=== PATIENT | female | born 1985 | race Caucasian/White ===

== ENCOUNTER 2018-02-20 02:04 | Inpatient (IN) | payer BC ==
[2018-02-20] MEDS ORDERED: Butorphanol Tartrate 1 MG/ML VIAL SLOW IVP PRN (02:20)
[2018-02-20] MEDS ORDERED: Promethazine HCl 25 MG/ML VIAL IM PRN ×2 (02:20→03:59)
[2018-02-20] MEDS ORDERED: Lactated Ringer's 1,000 ML IV SCH ×2 (02:20→02:21)
[2018-02-20] MEDS ORDERED: Ondansetron PF 4 MG/2 ML Vial IVP PRN ×2 (02:20→03:59)
[2018-02-20] MEDS ORDERED: Lidocaine 1% (PF) 30 ML VIAL ONE (02:30)
[2018-02-20] MEDS ORDERED: NS / Oxytocin 40 units/1000ml 1,000 ML ONE ×2 (02:30→07:04)
[2018-02-20 02:43] LABS: Hemoglobin 13.8 g/dL (12.0-16.0); Mean Corpuscular HGB CONC 35.4 g/dL (32.0-36.0); Mean Corpuscular Hemoglobin 32.4 pg (27.0-31.0); Mean Corpuscular Volume 91.4 fL (78.0-98.0); Mean Platelet Volume 10.1 fL (7.4-10.4); Platelet Count 199 thou/uL (130-400); RBC Distribution Width 12.3 % (11.5-14.5); Red Blood Cell (RBC) Count 4.26 mill/uL (4.20-5.40); White Blood Cell (WBC) Count 11.1 thou/uL (4.8-10.8)
[2018-02-20] MEDS ORDERED: Fentanyl 4 mcg/Bup 0.1% Cadd 100 ML ONE (03:00)
[2018-02-20 03:22] LABS: HBSAg Index 0.17 S/CO (0-0.99); Hep B Surf Ag Non-Reactive S/CO (NonReactive)
[2018-02-20] MEDS ORDERED: diphenhydrAMINE 50 MG/ML VIAL IVP PRN (03:59)
[2018-02-20] MEDS ORDERED: Eucerin (Mineral Oil/Petrolatum,White) 30 gm Jar TOP PRN (03:59)
[2018-02-20] MEDS ORDERED: Acetaminophen 325 MG TAB PO PRN (03:59)
[2018-02-20] MEDS ORDERED: Lactated Ringer's 500 ML IV PRN (03:59)
[2018-02-20] MEDS ORDERED: ePHEDrine/0.9% NaCl/PF SYRINGE 50 mg/10 ml SLOW IVP PRN (03:59)
[2018-02-20] MEDS ORDERED: Naloxone HCl 0.4 mg/ml Vial IVP PRN ×2 (03:59)
[2018-02-20] MEDS ORDERED: Fentanyl 4 mcg/Bupivacaine 0.1% Cassette 100 ML EPIDURAL SCH (04:00)
[2018-02-20] MEDS ORDERED: Communication Order-Pharmacy FS SCH (04:00)
[2018-02-20 04:33] LABS: Syphilis Antibody Nonreactive (Nonreactive); Syphilis Antibody Index 0.06 S/CO (<1.00 Non-Reactive)
[2018-02-20 05:04] VITALS: BMI 29.4
[2018-02-20] MEDS ORDERED: Bisacodyl 10 MG SUPP PR PRN (07:49)
[2018-02-20] MEDS ORDERED: Milk Of Magnesia 30 ML UDCUP PO PRN (07:49)
[2018-02-20] MEDS ORDERED: Lanolin Ointment 7 GM TUBE TOP PRN (07:49)
[2018-02-20] MEDS ORDERED: Benzocaine/Menthol 20-0.5% 60 ML CAN TOP PRN (07:49)
[2018-02-20] MEDS ORDERED: NS / Oxytocin 40 units/1000ml 1,000 ML IV SCH (07:49)
[2018-02-20 08:34] LABS: Actual Bicarbonate (HCO3a) 25.4 mEq/L (22-28); Actual Bicarbonate (HCO3v) 25 mEq/L (22-28); Analyzer IN Cardio OR; Base Excess -1.1 mEq/L (-2.0 to +3.0); Base Excess (BEa) -1.1 mEq/L (-2.0 to +3.0); pH (Cord, venous) 7.34 (7.32-7.43)
[2018-02-20] MEDS ORDERED: Bupivacaine HCl 0.5%/Epinephrine 1:200,000/PF 30 ml Vial ONE (15:00)
[2018-02-20] MEDS: HYDROcodone/Acetaminophen 5/325 mg Tablet PO PRN ×2 (17:32→21:36)
[2018-02-20] MEDS: Ferrous Sulfate 325 MG TAB PO SCH ×2 (17:33→18:04)
[2018-02-20] MEDS: Docusate Calcium (SURFAK) 240 MG CAP PO SCH ×2 (17:34→21:36)
[2018-02-21] MEDS: HYDROcodone/Acetaminophen 5/325 mg Tablet PO PRN ×4 (01:33→21:30)
[2018-02-21] MEDS: Ferrous Sulfate 325 MG TAB PO SCH ×2 (07:35→17:20)
[2018-02-21] MEDS: Docusate Calcium (SURFAK) 240 MG CAP PO SCH ×2 (08:25→21:32)
[2018-02-21] MEDS ORDERED: Cyclobenzaprine 10 MG TAB PO PRN (09:26)
--- NOTE | 2018-02-21 09:26 | PDOC.PP ---
Post Progress Note Post Day #: 1 Subjective: C/O pain. Cramping and upper back pain from pushing. Unable to take ibuprofen due to allergy. Spring only somewhat helpful. PO intake tolerated: yes Flatus: yes Ambulation: yes Vital Signs (12 hours) Temp Pulse Resp BP Pulse Ox 02/21/18 08:00 98.1 F 63 20 113/65 98 02/21/18 05:00 98.1 F 65 18 125/80 02/21/18 00:00 98.4 F 69 20 158/82 H Weight Weight 188 lb - Physical Examination General: NAD Cardiovascular: no m/r/g, RRR Respiratory: clear to auscultation bilaterally, non-labored breathing Abdominal: + bowel sounds, lochia, no distention, appropriately TTP Result Diagrams: 02/20/18 02:30 Additional Labs: Post Labs Blood Type AB NEGATIVE 02/20/18 02:15 Hep Bs Antigen Non-Reactive S/CO (NonReactive) 02/20/18 02:30 (1) Vaginal delivery Code(s): O80 - ENCOUNTER FOR FULL-TERM UNCOMPLICATED DELIVERY Status: Acute (2) Upper back pain Code(s): M54.9 - DORSALGIA, UNSPECIFIED Status: Acute - Assessment/Plan Routine PP care Spring for pain control Heating pad for upper back pain, can try flexeril as well well.
[2018-02-21 21:56] VITALS: TEMP 97.9
[2018-02-22 08:11] VITALS: BP 114/72
[2018-02-22] MEDS: Ferrous Sulfate 325 MG TAB PO SCH (09:31)
[2018-02-22] MEDS: Docusate Calcium (SURFAK) 240 MG CAP PO SCH (09:36)
--- NOTE | 2018-02-22 15:51 | PDOC.PP ---
Post Progress Note Post Day #: 2 Subjective: No c/o. Pain resolved. Bleeding normal. PO intake tolerated: yes Flatus: yes Ambulation: yes Vital Signs (12 hours) Temp Pulse Resp BP Pulse Ox 02/22/18 08:00 97.9 F 64 20 114/72 97 Weight Weight 188 lb - Physical Examination General: NAD Cardiovascular: no m/r/g, RRR Respiratory: clear to auscultation bilaterally, non-labored breathing Abdominal: + bowel sounds, lochia, no distention, appropriately TTP Result Diagrams: 02/20/18 02:30 Additional Labs: Post Labs Blood Type AB NEGATIVE 02/20/18 02:15 Hep Bs Antigen Non-Reactive S/CO (NonReactive) 02/20/18 02:30 (1) Vaginal delivery Code(s): O80 - ENCOUNTER FOR FULL-TERM UNCOMPLICATED DELIVERY Status: Acute (2) Upper back pain Code(s): M54.9 - DORSALGIA, UNSPECIFIED Status: Acute - Assessment/Plan Routine PP care Back pain resolved D/C home
== END 2018-02-22 16:45 | disposition home or self-care (01) | DRG 807 ==
LOC: L&D/OP 02:04 → L&D 03:06 → 3SW 09:21
PROVIDERS: ADMIT Family Medicine; ATTEND Family Medicine
PROC: 10E0XZZ Delivery of Products of Conception, External Approach (ICD-10-PCS; principal; 2018-02-20)
PROC: 0KQM0ZZ Repair Perineum Muscle, Open Approach (ICD-10-PCS; 2018-02-20)
DX: O99.52 Diseases of the respiratory system complicating childbirth (principal); Z37.0 Single live birth; Z3A.40 40 weeks gestation of pregnancy; O76 Abnormality in fetal heart rate and rhythm complicating labor and delivery; O70.1 Second degree perineal laceration during delivery; Z79.899 Other long term (current) drug therapy; J45.20 Mild intermittent asthma, uncomplicated
CPT/HCPCS: 36415; 51702; 82805; 85027; 85461; 86780; 86850; 86870; 86900; 86901; 87340; 90384; 96372; 99285; J0670; J2001

== ENCOUNTER 2023-05-04 08:00 | Outpatient (CLI) | payer BC | END 2023-05-04 08:01 | disposition home or self-care (01) | LOC: PET 08:00 | PROVIDERS: ATTEND Psychiatry & Neurology Neurology | DX: R41.3 Other amnesia (principal) | CPT/HCPCS: 78803; A9552 ==